=== PATIENT | female | born 1930 | race Caucasian/White ===

== ENCOUNTER 2018-01-19 09:30 | Outpatient (CLI) | payer MEDICARE ==
--- NOTE | 2018-01-19 11:51 | RAD ---
LEFT ANKLE 3 VIEWS: HISTORY: Left ankle pain and ulceration. FINDINGS: Ankle mortise is intact. Unfused old ossific avulsion lies just distal to the medial malleolus. Oss eous structures are demineralized. No acute fracture, dislocation, or aggressive osseous erosions ar e apparent. Soft tissue swelling overlies the medial malleolus. IMPRESSION: 1. Soft tissue swelling. No underlying ossific destruction is evident. 2. Osteoporosis. POS: [facility]
== END 2018-01-19 09:31 | disposition home or self-care (01) ==
LOC: NAV RAD 09:30
PROVIDERS: ATTEND Family Medicine
DX: L97.329 Non-pressure chronic ulcer of left ankle with unspecified severity (principal); M81.0 Age-related osteoporosis without current pathological fracture